=== PATIENT | female | born 1960 | race Asian ===

== ENCOUNTER 2019-09-04 06:27 | Day surgery (SDC) | payer OTHER ==
[~2019-09-04] VITALS: Ht 170.2 cm; Wt 59.9 kg
[2019-09-04] MEDS ORDERED: fentaNYL 0.05 MG/ML VIAL ONE (08:50)
[2019-09-04] MEDS ORDERED: LIDOCAINE 2% 100 MG/5 ML UJET TP ONE (08:50)
[2019-09-04] MEDS ORDERED: fentaNYL 0.05 MG/ML VIAL IVP ONE (10:05)
== END 2019-09-04 10:15 | disposition home or self-care (01) ==
LOC: MOR 06:27 → MMU 07:04 → MOR 10:15
PROVIDERS: ATTEND Internal Medicine Gastroenterology
DX: K62.5 Hemorrhage of anus and rectum (principal); K92.89 Other specified diseases of the digestive system; Z80.0 Family history of malignant neoplasm of digestive organs; K64.9 Unspecified hemorrhoids; K52.9 Noninfective gastroenteritis and colitis, unspecified
CPT/HCPCS: 45380; 81025; J3010